=== PATIENT | male | born 1990 | race Caucasian/White ===

== ENCOUNTER 2022-10-09 06:48 | Emergency (ER) | payer BC ==
[2022-10-09 07:54] LABS: ESTIMATED GFR 101 mL/min (>60)
== END 2022-10-09 08:50 | disposition home or self-care (01) ==
LOC: JD.ED 06:48
DX: R07.89 Other chest pain (principal); R00.0 Tachycardia, unspecified
CPT/HCPCS: 36415; 71046; 71046-26; 80053; 84484; 85025; 85379; 93005; 93010; 99284; 99285